=== PATIENT | male | born 1955 | race Caucasian/White ===

== ENCOUNTER → 2020-05-25 10:47 | Outpatient (BNVA) | payer MEDICARE, OTHER, SELFPAY | PROVIDERS: Family Provider Family Medicine; Visit Provider Nurse Practitioner Family | DX: R31.9 Hematuria, unspecified (principal); R31.29 Other microscopic hematuria | CPT/HCPCS: 81003; 85025 ==

== ENCOUNTER 2020-06-12 12:26 | Outpatient (CLI) | payer MEDICARE, OTHER, SELFPAY ==
--- NOTE | 2020-06-12 12:56 | CT_ITS ---
WS: [id number] CT ABDOMEN PELVIS TECHNIQUE: Noncontrast CT of the abdomen and pelvis with coronal and sagittal reformatted images. CLINICAL INFORMATION: HEMATURIA, NEPHROLITHIASIS DLP: 1184.[address] scans at [facility] use at least one of these dose optimization techniques: automat ed exposure control; mA and/or kV adjustment per patient size (includes targeted exams where dose is matched to clinical indication); or iterative reconstruction. FINDINGS: Adrenal Glands are normal. Moderate left hydronephrosis with obstructing calculus in the left proxima l ureter measuring 5 mm. Distal left ureter is decompressed. Inflammatory stranding and edema about t he left kidney. No hydronephrosis in right kidney. Right ureter is decompressed. Noncontrast liver is normal. Choleli thiasis/sludge in the neck of the gallbladder. Lung bases are well aerated. Slight hazy groundglass i nfiltrates in the mid and lower lungs bilaterally.Correlation for pneumonitis. Diffuse bladder wall thickening. Enlarged prostate with calcification. Prostate measures 4.3 CM. Norm al sigmoid colon. No evidence of high-grade small or large bowel obstruction. Normal appendix. Fat-co ntaining umbilical hernia. Normal noncontrast spleen and pancreas. Normal lumbar spine. CT/CT kidney stone [id number] IMPRESSION: 1. 5 mm obstructing left proximal ureteral calculus with moderate left hydrone phrosis. Inflammatory stranding and edema about the left kidney. Distal left ur eter is decompressed. 2. Cholelithiasis with sludge or stones in the gallbladder neck. This can be f ollowed up with ultrasound. 3. Mild prostate enlargement measuring 4.3 CM. Recommend correlation PSA. 4. Diffuse bladder wall thickening likely due to bladder outlet obstruction. 5. Slight hazy vague groundglass infiltrates in the lung bases. Recommend mary elation for viral pneumonitis.
== END 2020-06-12 12:27 | disposition home or self-care (01) ==
LOC: RADWPI 12:30
PROVIDERS: Visit Provider Family Medicine
DX: R31.9 Hematuria, unspecified (principal); N20.0 Calculus of kidney; N40.1 Benign prostatic hyperplasia with lower urinary tract symptoms; N20.1 Calculus of ureter; K80.20 Calculus of gallbladder without cholecystitis without obstruction; R91.8 Other nonspecific abnormal finding of lung field
CPT/HCPCS: 74176

== ENCOUNTER 2020-06-16 14:17 | Outpatient (CLI) | payer MEDICARE, OTHER, SELFPAY ==
--- NOTE | 2020-06-16 14:36 | XR_ITS ---
WS: [id number] ABDOMEN 1 VIEW(S) HISTORY: CALCULUS COMPARISON: None available. Normal bowel gas pattern. No suspicious calcifications or masses. No bone abnormality. XR/XR KUB [id number] IMPRESSION: Normal abdomen.
== END 2020-06-16 14:18 | disposition home or self-care (01) ==
PROVIDERS: PCP Family Medicine; Visit Provider Urology
DX: N20.1 Calculus of ureter (principal)
CPT/HCPCS: 74018; 81003

== ENCOUNTER 2020-06-26 08:02 | Outpatient (CLI) | payer MEDICARE, OTHER, SELFPAY ==
--- NOTE | 2020-06-26 09:15 | XRR_ITS ---
PROCEDURE INFORMATION: Exam: XR Abdomen, 1 View Exam date and time: 06/26/2020 8:12 AM Age: 64 years old Clinical indication: Condition or disease; Kidney or ureter condition; Calculus (stone) in kidney and calculus (stone) in ureter; Patient HX: Kidney stone left side, checking to see if has moved, microscopic hematura; Additional info: Stones TECHNIQUE: Imaging protocol: XR of the abdomen. Views: Frontal supine view of the abdomen. 1 View. COMPARISON: CR XR KUB [id number] 06/16/2020 2:42 PM FINDINGS: Gastrointestinal tract: Normal. No bowel dilation. Bones/joints: Previously seen radiopaque calculus along the left lateral aspect of L4 is no longer visualized. Bilateral pelvic phleboliths are re-identified. XR/XR KUB [id number] IMPRESSION: Previously identified left ureteral calculus is no longer seen.
== END 2020-06-26 08:03 | disposition home or self-care (01) ==
LOC: RAD 08:07
PROVIDERS: PCP Family Medicine; Visit Provider Urology
DX: N20.9 Urinary calculus, unspecified (principal)
CPT/HCPCS: 74018; 81003

== ENCOUNTER 2020-07-03 06:55 | Outpatient (CLI) | payer MEDICARE, OTHER, SELFPAY ==
--- NOTE | 2020-07-03 07:00 | XR_ITS ---
WS: [id number] Exam: XR KUB [id number] Date/Time of Exam: 07/03/2020 7:05 AM Reason For Exam: STONES No bowel obstruction or free air. No abnormal calcifications identified in the region of the kidneys. Nonspecific bilateral pelvic calcifications noted. Visualized organ margins are unremarkable in appe arance. Bony structures are intact. XR/XR KUB [id number] IMPRESSION: 1. No acute abdominal finding. 2. No calcifications noted in the region of the kidneys.
== END 2020-07-03 06:56 | disposition home or self-care (01) ==
LOC: RAD 06:58
PROVIDERS: PCP Family Medicine; Visit Provider Urology
DX: N20.9 Urinary calculus, unspecified (principal)
CPT/HCPCS: 74018; 81003

== ENCOUNTER 2020-07-10 08:00 | Outpatient (CLI) | payer MEDICARE, OTHER, SELFPAY ==
--- NOTE | 2020-07-10 08:06 | XR_ITS ---
WS: [id number] KUB, AP view, 07/09/2020 Clinical Data: STONES Comparison: KUB, 07/03/2020. Findings: No abnormal intraabdominal masses or calcifications are seen. There is no dilatated small bowel or ev idence of obstruction. There are phleboliths in the true pelvis. XR/XR KUB [id number] Impression: Negative KUB.
== END 2020-07-10 08:01 | disposition home or self-care (01) ==
PROVIDERS: PCP Family Medicine; Visit Provider Urology
DX: N20.9 Urinary calculus, unspecified (principal)
CPT/HCPCS: 74018; 81003

== ENCOUNTER 2020-07-13 06:41 | Outpatient (CLI) | payer MEDICARE, OTHER, SELFPAY ==
--- NOTE | 2020-07-13 07:00 | CT_ITS ---
WS: [id number] CT ABDOMEN PELVIS TECHNIQUE: Noncontrast CT of the abdomen and pelvis with coronal and sagittal reformatted images. CLINICAL INFORMATION: UROLITHIASIS COMPARISON: 2 09/25 DLP: 1965.[address] scans at [facility] use at least one of these dose optimization techniques: automat ed exposure control; mA and/or kV adjustment per patient size (includes targeted exams where dose is matched to clinical indication); or iterative reconstruction. FINDINGS: Previous described 5 mm proximal left ureteral calculus has migrated distally now at the pelvic inlet and the left lower quadrant. Distal ureter is decompressed. Mild inflammatory stranding and edema ab out the left kidney has improved. Mild hydronephrosis appears improved. No hydronephrosis in right kidney. Nonobstructing right renal or ureteral calculi. No other significa nt changes from previous. Left renal cyst measuring 1.6 cm. Normal noncontrast liver. Cholelithiasis.Diffuse bladder wall thickening. Enlarged prostate with calc ification. Prostate measures 4.3 CM. Normal sigmoid colon. No evidence of high-grade small or large b owel obstruction. Normal appendix. Fat-containing umbilical hernia. Normal noncontrast spleen and jeffrey creas. Normal lumbar spine. CT/CT kidney stone [id number] IMPRESSION: 1. Previous described 5 mm left obstructing ureteral calculus has migrated dis tally now at the pelvic inlet. Hydronephrosis and inflammatory stranding about the left kidney has improved. 2. No other significant changes from previous. 3. Cholelithiasis. 4. Enlarged calcified prostate.
== END 2020-07-13 06:42 | disposition home or self-care (01) ==
PROVIDERS: PCP Family Medicine; Visit Provider Nurse Practitioner Family
DX: N20.9 Urinary calculus, unspecified (principal); N40.0 Benign prostatic hyperplasia without lower urinary tract symptoms; K80.20 Calculus of gallbladder without cholecystitis without obstruction
CPT/HCPCS: 74176; 81003

== ENCOUNTER 2020-07-24 09:57 | Outpatient (CLI) | payer MEDICARE, OTHER, SELFPAY ==
--- NOTE | 2020-07-24 10:15 | XR_ITS ---
WS: [id number] XR KUB [id number] REASON FOR EXAM: stones FINDINGS: Examination is unchanged compared to previous study of 07/10/2020. No urinary tract calculi are identif ied. The bowel gas pattern is unremarkable. No free air or retroperitoneal air. No mass is identified. XR/XR KUB [id number] IMPRESSION: No significant abnormality.
== END 2020-07-24 09:58 | disposition home or self-care (01) ==
LOC: RAD 10:04
PROVIDERS: PCP Family Medicine; Visit Provider Urology
DX: N20.9 Urinary calculus, unspecified (principal)
CPT/HCPCS: 74018; 81003

== ENCOUNTER → 2020-08-03 15:55 | Outpatient (BNVA) | payer MEDICARE, OTHER, SELFPAY | PROVIDERS: PCP Family Medicine; Visit Provider Urology | DX: Z20.822 Contact with and (suspected) exposure to COVID-19 (principal); N20.1 Calculus of ureter; N20.9 Urinary calculus, unspecified | CPT/HCPCS: 87635 ==

== ENCOUNTER 2020-08-06 11:25 | Day surgery (SDC) | payer MEDICARE, OTHER, SELFPAY ==
[2020-08-05 12:47] VITALS: BMI 32.5
--- NOTE | 2020-08-06 | SCC_ITS ---
Procedure Done: 1. Cystoscopy with left retrograde ureteropyelogram 2. Left ureteroscopy, laser lithotripsy, stent 33.7 seconds of fluoroscopic guidance, for a cumulative dose of 12.29 mGy, was provided to Dr. Cross by the radiology department. C-arm images of the abdomen were saved for the patient's permanent record. [facility]
--- NOTE | 2020-08-06 11:21 | SC_ITS ---
WS: [id number] C-arm fluoroscopy for left ureteral stent placement, 08/06/2020 Clinical Data: Left ureteral stone Comparison: KUB, 08/06/2020 Findings: A left retrograde urogram shows a filling defect at the level of the left pelvic brim which is probab ly a ureteral calculus. The left ureteral stent is placed into the left renal pelvis and into the bladder. SC/C-arm FL for Urology Impression: Satisfactory placement of left ureteral stent.
--- NOTE | 2020-08-06 11:21 | XR_ITS ---
WS: [id number] KUB, 08/06/2020 Clinical Data: Preop left ureteroscopy Comparison: KUB, 07/24/2020. Findings: No abnormal intraabdominal masses or calcifications are seen. There is no dilatated small bowel or ev idence of obstruction. XR/XR KUB [id number] Impression: Negative KUB.
[2020-08-06 12:07] VITALS: BP 174/95; PULSE 65; RESP 18; TEMP 36.3; O2SAT 98
[2020-08-06] MEDS: sodium chloride 0.9% 1,000 ML 30 ML IV (12:28)
--- NOTE | 2020-08-06 12:57 | P.HPUD_ITS ---
Surgery/Procedure H&P Update DATE OF PROCEDURE: August 06, 2020 DATE H&P PERFORMED: 07/24/20 H&P UPDATE INFORMATION: I have reviewed H&P completed within last 30 days, I have examined patient prior to procedure, No changes to prior documentation and H&P is in [facility] EMR on date indicated PREOP DIAGNOSIS: Refractory left ureteral calculus PLANNED PROCEDURE: Operation Date: 08/06/20 13:00 Proposed Procedures p Laser Lithotripsy [id number] 40729 N20.1 N20.9(Not Applicable) - Deny Cross MD s Cystoscopy(Not Applicable) - MD haley Chavez Retrograde Pyelogram(Left) - MD haley Chavez Ureteroscopy(Not Applicable) - Deny Cross MD s Ureteral Stent Placement(Not Applicable) - Deny Cross MD
--- NOTE | 2020-08-06 14:15 | P.OP_ITS ---
Operative Report Date of procedure: August 06, 2020 Pre-op Diagnosis: Refractory left ureteral calculus Post-op diagnosis: same Procedure Done: 1. Cystoscopy with left retrograde ureteropyelogram 2. Left ureteroscopy, laser lithotripsy, stent Implants: Left ureteral stent (6 [place] by 28 cm double-pigtail without string Pathology: Stone fragments Anesthesia: General Estimated blood loss: Minimal Urine output: Not measured Complications: None Brief History: Mr. Brice is a very pleasant 64-year-old white male evaluated on 06/16/2020 with complaints of recently diagnosed 5 mm left proximal ureteral stone with obstructive changes. By the time I saw him he was feeling much better and wanted to see if he could pass the stone. The stone was hard to identify on the original KUB following the CT scan and since that time it has not been clearly seen but a follow-up repeat CT scan showed the stone was still present in the ureter but now at the level of S1 with no hydronephrosis. He chose to continue conservative management but had no passage. He is admitted now for endoscopic treatment of the stone Procedure: After routine preoperative evaluation examination and obtaining of informed consent he was taken to the operating suite on 08/06/2020 where general anesthesia was administered without difficulty after appropriate timeout was performed, SCDs confirmed to be functioning, preoperative antibiotics administered, beta- irene protocol confirmed. Prepped and draped in usual sterile fashion in dorsolithotomy position paying careful attention to avoiding pressure points. 21 [place] cystoscope with 30 degree lens was introduced into the urethral meatus and advanced into the bladder under videoscopy. Bladder systematically examined and found to be within normal limits without stone. An 8 [place] cone-tip catheter was intubated to the left ureteral orifice for a LEFT RETROGRADE URETEROPYELOGRAM: The distal ureter appeared to be normal. Filling defect identified in the expected position in the sacral level ureter. Flexible tip guidewire was then advanced up the left ureter bypassing the stone and curling the area of the upper pole calyx. The distal ureter was dilated with a 15 [place] 4 cm balloon. The wire was secured to the drapes as a safety wire. A second guidewire was passed. It also easily bypassed the stone. A 38 cm ureteral access sheath was advanced over the working wire to just below the level of the stone and the wire and the inner core were removed. A 7 [place] offset semirigid ureteroscope was then advanced up the access sheath and the stone was encountered in its expected position. A 365 ?m thulium superpulse laser fiber was utilized for fragmentation. After complete fragmentation the pieces were withdrawn with a grasping forceps and flushed free from the ureter. final inspection revealed no further stone pieces. It was decided to leave a ureteral stent in place and a 6 [place] by 28 cm double-pigtail stent was advanced over the guidewire through the cystoscope into appropriate position as confirmed via fluoroscopy and cystoscopy. Bladder was drained. Stone fragments sent for pathologic evaluation. Tolerated procedure well without complications and was awakened in the operating room and returned to recovery in stable condition. PLANS: 1. Anticipate discharge from outpatient surgery 2. Follow-up in approximately 1 week for stent removal 3. He has a large prostate and may require catheter if difficulty voiding postop.
--- NOTE | 2020-08-06 14:47 | PC.NURSE ---
omnipaque 300mgi/ml 2ml injected into left ureter exp 03/30/23 lot#[id number]
[2020-08-06] MEDS: iohexol 300 mg/mL 50 mL Btl XX (14:48)
[2020-08-06 15:10] VITALS: BP 148/83; PULSE 78; RESP 18; TEMP 36.4; O2SAT 99
[2020-08-06 15:15] VITALS: BP 136/80; PULSE 77; RESP 18; O2SAT 95
[2020-08-06 15:20] VITALS: BP 144/91; PULSE 78; RESP 18; O2SAT 96
[2020-08-06 15:25] VITALS: BP 145/81; PULSE 76; RESP 17; TEMP 36.3; O2SAT 97
[2020-08-06 15:32] VITALS: BP 163/95; PULSE 72; RESP 16; TEMP 36.6; O2SAT 96
== END 2020-08-06 16:12 | disposition home or self-care (01) ==
PROVIDERS: PCP Family Medicine; Visit Provider Urology
PROC: (CPT 52356; principal; 2020-08-06 12:50)
PROC: 0TJB8ZZ Inspection of Bladder, Via Natural or Artificial Opening Endoscopic (ICD-10-PCS; CPT 52000; 2020-08-06 12:50)
PROC: (CPT 74420; 2020-08-06 12:50)
PROC: 0TJ98ZZ Inspection of Ureter, Via Natural or Artificial Opening Endoscopic (ICD-10-PCS; CPT 52351; 2020-08-06 12:50)
PROC: (CPT 50605; 2020-08-06 12:50)
DX: N20.1 Calculus of ureter (principal); N40.1 Benign prostatic hyperplasia with lower urinary tract symptoms; N13.8 Other obstructive and reflux uropathy
CPT/HCPCS: 52356; 74018; 76000; 82365; 88300; C2625; J0690; J2370; J2405; J2704; J2710; J3010; J3490; J7030; Q9967

== ENCOUNTER → 2020-08-12 08:12 | Outpatient (BNVA) | payer MEDICARE, OTHER, SELFPAY | PROVIDERS: PCP Family Medicine; Visit Provider Urology | DX: N20.9 Urinary calculus, unspecified (principal) | CPT/HCPCS: 81003 ==

== ENCOUNTER 2021-02-11 08:17 | Outpatient (CLI) | payer MEDICARE, OTHER, SELFPAY ==
--- NOTE | 2021-02-11 08:30 | XR_ITS ---
WS: [id number] XR KUB [id number] REASON FOR EXAM: UROLITHIASIS FINDINGS: No urinary tract calculi are identified. No other significant abdominal or pelvic abnormality is identified. XR/XR KUB [id number] IMPRESSION: No urinary tract calculi identified.
== END 2021-02-11 08:18 | disposition home or self-care (01) ==
PROVIDERS: PCP Family Medicine; Visit Provider Urology
DX: N20.9 Urinary calculus, unspecified (principal)
CPT/HCPCS: 74018; 81003

== ENCOUNTER → 2021-05-17 13:38 | Outpatient (BNVA) | payer MEDICARE, OTHER, SELFPAY | PROVIDERS: PCP Family Medicine; Visit Provider Nurse Practitioner Family | DX: Z20.822 Contact with and (suspected) exposure to COVID-19 (principal) | CPT/HCPCS: 87635 ==

== ENCOUNTER 2022-02-25 17:21 | Inpatient (IN) | payer MEDICARE, OTHER, SELFPAY ==
--- NOTE | 2022-02-25 17:25 | ECG_ITS ---
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 Measurements Intervals [place] Rate: 59 P: 63 RI: 283 QRS: 13 QRSD: 100 T: 64 QT: 435 QTc: 432 Interpretive Statements SINUS BRADYCARDIA WITH FIRST DEGREE AV BLOCK MODERATE ST DEPRESSION [0.05+ mV ST DEPRESSION] Compared to ECG 10/04/2015 19:26:02 ST (T wave) deviation now present Sinus rhythm no longer present Electronically Signed On 02-28-2022 23:06:17 CDT by Tessy Snow M.D. [id number]
--- NOTE | 2022-02-25 17:25 | XRR_ITS ---
PROCEDURE INFORMATION: Exam: XR Chest Exam date and time: 02/25/2022 6:35 PM Age: 66 years old Clinical indication: Other: Syncope; Additional info: Cp TECHNIQUE: Imaging protocol: Radiologic exam of the chest. Views: 1 view. COMPARISON: CR XR KUB [id number] 02/11/2021 8:27 AM FINDINGS: Lungs: Unremarkable. No consolidation. Pleural spaces: Unremarkable. No pleural effusion. No pneumothorax. Heart/Mediastinum: Unremarkable. No cardiomegaly. Bones/joints: Unremarkable. XR/XR chest 1V portable [id number] IMPRESSION: No acute findings.
[2022-02-25 17:31] VITALS: BP 142/85; PULSE 63; RESP 15; TEMP 36.7; O2SAT 97; BMI 32.5
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
[2022-02-25 18:26] LABS: Basophils # 0.1 10^3/uL (0.0-0.1); Basophils % 0.4 %; Eosinophils % 0.3 %; Hematocrit 43.1 % (42.0-52.0); Hemoglobin 14.6 g/dL (11.7-16.6); Lymphocytes # 1.5 10^3/uL (0.8-4.8); Lymphocytes % 11.1 %; Mean Corpuscular HGB Conc 33.9 g/dL (30.0-36.0); Mean Corpuscular Hemoglobin 30.5 pg (28.0-34.0); Mean Platelet Volume 9.8 fL (7.4-10.4); Monocytes # 0.3 10^3/uL (0.2-0.9); Monocytes % 2.3 %; Neutrophils # 11.67 10^3/uL (1.8-7.7); Neutrophils % 85.3 %; Nucleated Red Blood Cells % 0 %; Platelet Count 272 10^3/cmm (130-400); Red Blood Count 4.79 10^6/uL (4.1-5.3); Red Cell Distribution Width 13.1 % (12.1-15.1); White Blood Count 13.7 10^3/uL (4.0-10.0)
[2022-02-25 18:53] LABS: Troponin(5th) Baseline 38 ng/L (0-15)
[2022-02-25] MEDS: lidocaine 2% viscous 15 ML, aluminum-mag hydrox-simethicon 30 ML, sucralfate oral liq 1 GM PO (18:53)
[2022-02-25] MEDS: aspirin 81 mg Chew Tablet 324 MG PO (18:53)
[2022-02-25 19:01] VITALS: BP 142/85; PULSE 63; RESP 15; O2SAT 97
[2022-02-25 19:02] LABS: Alanine Aminotransferase 22 U/L (0-41); Albumin Level 4.3 g/dL (3.5-5.2); Alkaline Phosphatase 60 U/L (40-130); Aspartate Amino Transferase 18 U/L (0-40); Blood Urea Nitrogen 23 mg/dL (8-23); Calcium 8.8 mg/dL (8.5-10.5); Carbon Dioxide 25 mmol/L (22-29); Chloride 103 mmol/L (98-107); Creatinine Clr Calc Pharmacy 100.1164; Glomerular Filtration Rate 83.9 mL/min (90-130); Glucose 128 mg/dL (65-115); Lipase 23 U/L (13-60); NT Pro B Type Natriuretic Pept 220 pg/mL (0-125); Osmolality Calculated 291 mOsm/kg (285-295); Sodium 138 mmol/L (136-145); Total Bilirubin 0.3 mg/dL (0.15-1.2); Total Protein 7.3 g/dL (6.6-8.7)
--- NOTE | 2022-02-25 19:09 | ECG_ITS ---
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 Measurements Intervals [place] Rate: 66 P: 53 CA: 285 QRS: 20 QRSD: 101 T: 63 QT: 409 QTc: 429 Interpretive Statements SINUS RHYTHM WITH FIRST DEGREE AV BLOCK MODERATE ST DEPRESSION [0.05+ mV ST DEPRESSION] Compared to ECG 02/25/2022 17:40:36 Sinus bradycardia no longer present ST (T wave) deviation still present Electronically Signed On 02-28-2022 23:17:31 CDT by Tessy Snow M.D. [id number]
[2022-02-25 20:54] LABS: Troponin 5 2HR 48.75 ng/L (0-15)
[2022-02-25 21:01] LABS: Troponin 5 2HR Delta 10.75 ABS# (0-10)
[2022-02-25] MEDS: enoxaparin 120 mg/0.8 mL Syringe 110 MG SUBCUT (22:09)
[2022-02-25 22:12] VITALS: BP 130/81; PULSE 75; RESP 17; O2SAT 98
[2022-02-25 22:32] LABS: SARS Covid-2 Antigen negative (Negative)
[2022-02-25 22:56] VITALS: BP 123/84; PULSE 69; PULSE 71; RESP 19; O2SAT 95
[2022-02-25 23:00] VITALS: BP 130/81; PULSE 75; RESP 17; O2SAT 98
--- NOTE | 2022-02-25 23:25 | ECG_ITS ---
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 Measurements Intervals [place] Rate: 80 P: 48 NC: 263 QRS: 3 QRSD: 95 T: 39 QT: 391 QTc: 453 Interpretive Statements SINUS RHYTHM WITH FIRST DEGREE AV BLOCK NONSPECIFIC ST & T-WAVE ABNORMALITY Compared to ECG 02/25/2022 19:09:49 T-wave abnormality now present ST (T wave) deviation no longer present Electronically Signed On 02-28-2022 23:17:01 CDT by Tessy Snow M.D. [id number]
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
[2022-02-25 23:58] VITALS: BP 123/84; PULSE 74; RESP 13; TEMP 37.1; O2SAT 93
[2022-02-26] VITALS (30 sets, daily range): BP systolic 99–155; BP diastolic 56–91; PULSE 60–88; RESP 11–22; TEMP 36.6–37.1; O2SAT 92–96
[2022-02-26] MEDS: HYDROcodone-acetaminophen 5-325 mg Tablet 1 TAB PO ×2 (00:09→20:17)
[2022-02-26] MEDS: zolpidem 5 mg Tablet 10 MG PO ×2 (00:09→20:18)
[2022-02-26] MEDS: morphine 4 mg/mL SDV 1 mL 2 MG IVP ×2 (01:17→05:17)
[2022-02-26 01:37] LABS: Basophils % 0.3 %; Eosinophils % 0.1 %; Hematocrit 45.3 % (42.0-52.0); Hemoglobin 15.1 g/dL (11.7-16.6); Lymphocytes # 1.7 10^3/uL (0.8-4.8); Lymphocytes % 12.2 %; Mean Corpuscular HGB Conc 33.3 g/dL (30.0-36.0); Mean Corpuscular Hemoglobin 29.8 pg (28.0-34.0); Mean Corpuscular Volume 89.5 fl (80-94); Mean Platelet Volume 9.6 fL (7.4-10.4); Monocytes # 0.5 10^3/uL (0.2-0.9); Monocytes % 3.6 %; Neutrophils # 11.75 10^3/uL (1.8-7.7); Neutrophils % 83.4 %; Nucleated Red Blood Cells % 0 %; Platelet Count 269 10^3/cmm (130-400); Red Blood Count 5.06 10^6/uL (4.1-5.3); Red Cell Distribution Width 13.4 % (12.1-15.1); White Blood Count 14.1 10^3/uL (4.0-10.0)
[2022-02-26 02:04] LABS: Alanine Aminotransferase 24 U/L (0-41); Albumin Level 4.3 g/dL (3.5-5.2); Alkaline Phosphatase 57 U/L (40-130); Anion Gap 17.9 (5-19); Aspartate Amino Transferase 32 U/L (0-40); Blood Urea Nitrogen 19 mg/dL (8-23); Calcium 8.8 mg/dL (8.5-10.5); Carbon Dioxide 22 mmol/L (22-29); Chloride 100 mmol/L (98-107); Globulin 2.7 g/dL (1.3-4.6); Glomerular Filtration Rate 96.1 mL/min (90-130); Glucose 133 mg/dL (65-115); Magnesium 2.1 mg/dL (1.7-2.3); Osmolality Calculated 286 mOsm/kg (285-295); Potassium 3.9 mmol/L (3.5-5.1); Sodium 136 mmol/L (136-145); Total Bilirubin 0.4 mg/dL (0.15-1.2)
--- NOTE | 2022-02-26 04:47 | PC.NURSE ---
Spoke with regarding patients 6hr troponin elevation. ordered 1/2 inch Nitro paste.
[2022-02-26] MEDS: nitroglycerin 1 gm/inch oint Pkt 0.5 INCH TOPICAL (05:01)
--- NOTE | 2022-02-26 05:11 | USCV_ITS ---
Cuco Brice Age: 66 Gender: M : 1955 Exam Date: 02/26/2022 07:23 Ordering Phys: Bita Zaman MD Technologist: Exam Location: [facility] [place] Indication: nstemi BP: 137 / 87 HR: 79 Rhythm: Sinus Technical Quality: Suboptimal MEASUREMENTS (Male / Female) Normal Values 2D ECHO LV Diastolic Diameter PLAX 4.1 cm 4.2 - 5.9 / 3.9 - 5.3 cm LV Systolic Diameter PLAX 3.1 cm IVS Diastolic Thickness 1.2 cm 0.6 - 1.0 / 0.6 - 0.9 cm IVS Systolic Thickness 1.4 cm LVPW Diastolic Thickness 1.0 cm 0.6 - 1.0 / 0.6 - 0.9 cm LVPW Systolic Thickness 1.5 cm LVOT Diameter 2.1 cm LV Ejection Fraction 2D Teich 49.1 % LV Ejection Fraction MOD 2C 62.6 % LV Ejection Fraction 2C AL 63.9 % LA Diameter 4.1 cm M-MODE Aortic Annulus Diameter 3.1 cm LA Ao Ratio MM 1.4 MV E Point Septal Separation 1.2 cm DOPPLER AV Peak Velocity 141.0 cm/s LVOT Peak Velocity 83.0 cm/s AV Area Cont Eq vti 2.5 cm squared AV Area Cont Eq pk 2.0 cm squared MV Area PHT 5.0 cm squared Mitral E to A Ratio 0.7 MV E' Velocity 38.0 cm/s Mitral E to MV E' Ratio 7.5 Mitral E to LV E' Lateral Ratio 9.4 Mitral E to LV E' Septal Ratio 6.3 TR Peak Velocity 145.0 cm/s TR Peak Gradient 8.4 mmHg TV Peak E Velocity 119.0 cm/s Right Atrial Pressure 3.0 mmHg Pulmonary Artery Systolic Pressu 11.4 mmHg RV Acceleration Time 0.1 s FINDINGS Left Ventricle Normal left ventricular size, systolic function and wall thickness. Left ventricular ejection fraction is estimated at 55 %. There is moderate hypokinesis of basal inferoseptal and basal to mid inferior maddox. Grade I diastolic dysfunction (abnormal relaxation filling pattern), normal to mildly elevated filling pressures. Right Ventricle Normal right ventricular size and systolic function. RVSP could not be calculated due to incomplete tricuspid regurgitation velocity profile. Right Atrium Normal right atrial size. Left Atrium Normal left atrial size. Mitral Valve Moderately thickened mitral valve. No mitral valve stenosis. No mitral valve regurgitation. Aortic Valve Mildly thickened trileaflet aortic valve. No aortic valve stenosis. No aortic valve regurgitation. Tricuspid Valve Structurally normal tricuspid valve. Trace tricuspid valve regurgitation. Pulmonic Valve Pulmonic valve not well visualized. No pulmonary valve stenosis. Trace pulmonary valve regurgitation. Pericardium No pericardial effusion. Aorta Normal size aortic root and proximal ascending aorta. IVC Inferior vena cava not visualized. CONCLUSIONS 1. This is a technically difficult study. 2. Normal left ventricular size, systolic function and wall thickness. Left ventricular ejection fraction is estimated at 55 %. There is moderate hypokinesis of basal inferoseptal and basal to mid inferior maddox. Grade I diastolic dysfunction (abnormal relaxation filling pattern), normal to mildly elevated filling pressures. 3. Normal right ventricular size and systolic function. 4. No significant valvular abnormality. 5. No prior similar studies to compare. Tessy Snow MD (Electronically Signed) Final Date: 26 February 2022 10:23 S
[2022-02-26] MEDS: clopidogrel 300 mg Tablet PO (05:32)
--- NOTE | 2022-02-26 05:52 | ECG_ITS ---
[facility] Test Date: 2022-02-26 Pat Name: Cuco Brice Department: Room: 276 Gender: Male Religion Professor: : 1955 Requested By: Bita Zaman Order Number: [id number] Lilibeth MD: Tessy Snow M.D. Measurements Intervals [place] Rate: 85 P: 45 OK: 236 QRS: -1 QRSD: 103 T: 65 QT: 376 QTc: 448 Interpretive Statements SINUS RHYTHM WITH FIRST DEGREE AV BLOCK NONSPECIFIC ST & T-WAVE ABNORMALITY Compared to ECG 02/26/2022 02:00:29 No significant changes Electronically Signed On 02-28-2022 23:05:05 CDT by Tessy Snow M.D. [id number]
--- NOTE | 2022-02-26 06:00 | PC.NURSE ---
rounded on patient. New orders obtained and patient started on Nitro drip for chest pain.
[2022-02-26] MEDS: nitroglycerin drip 50 MG/250 ML PREMIX IV (06:04)
[2022-02-26] MEDS: atorvastatin 40 mg Tablet PO (06:21)
[2022-02-26 06:24] LABS: Estmated Average Glucose 108; Hemoglobin A1C 5.4 % (4.0-6.0)
[2022-02-26 06:26] LABS: Chol HDL Ratio 6.61 mg/dL (1.0-5.00); Cholesterol 218 mg/dL (0-200); HDL Cholesterol 33 mg/dL (60-100); LDL Cholesterol Calculated 157 mg/dL (50-129); LDL HDL Ratio 4.76 RATIO (0.00-3.22); Triglycerides 139 mg/dL (0-150)
[2022-02-26] MEDS: acetaminophen 325 mg Tablet 650 MG PO (07:53)
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
[2022-02-26] MEDS: pantoprazole DR 40 mg Tablet PO (08:16)
[2022-02-26] MEDS: aspirin 81 mg EC Tablet PO (08:16)
[2022-02-26] MEDS: metoprolol succinate ER (24 HR) 50 mg Tablet 75 MG PO ×2 (08:16→17:57)
[2022-02-26] MEDS: dilTIAZem ER (24HR) 180 mg Capsule PO (08:16)
[2022-02-26] MEDS: losartan 50 mg Tablet 25 MG PO (08:18)
[2022-02-26] MEDS: alfuzosin 10 mg ER Tablet PO (08:25)
--- NOTE | 2022-02-26 09:10 | XACV_ITS ---
Exam Room: [facility] Ht: 183 cm Wt: 112 kg BSA: 2.43 m2 Gender: Male : 1955 Exam Priority: Routine Procedure(s): Procedure Description: Diagnostic procedure Procedure Description: PCI procedure Procedure Description: Drug Eluting Coronary Stent Procedure Description: PTCA Procedure Description: Coronary Angiography Diagnostic Cath Status: Urgent Diagnostic Findings * 66-year-old man with past medical history of hypertension and family history of CAD. He presented to the hospital with complaints of chest discomfort and his troponin T increased from 38 to 161. EKG showed sinus rhythm with ST depression in aVL V4 to V6. * Left Main has no disease. * Left Anterior Descending has no disease. * Circumflex is of small caliber with no disease. * Mid RCA with mild diffuse disease. * D * istal Right Coronary Artery: obstructive 95% stenosis with thrombus and distal aneurysm formation, ESTER: 3 flow. * Coronary angiography shows right dominance. * Case was discussed and images were reviewed with Dr. Todd. He took over the case at this time. PCI Status: Urgent PCI LVEF Assessed: No PCI Indication: NSTE - ACS Interventional Findings * Significant distal right coronary artery lesion with thrombus and aneurysmal formation. Initially underwent balloon angioplasty and subsequent stenting. Stenting revealed a very good result however there was some distal embolization of material down the most inferior posterior left ventricular branch. This was treated with intracoronary nitroglycerin which worked nicely. By the end of the procedure there was normal flow in all vessels. Decision for PCI with Surgical Consult: No PCI for Multi-vessel Disease: No Conclusions 1. There is obstructive coronary artery disease with one vessel disease. 2. Distal RCA severe lesion underwent balloon angioplasty and drug-eluting stent placement. Recommendations * Statin and aspirin 81mg lifelong, if tolerated. * Continue Plavix 75mg p.o. daily for at least one year. * Continue current medical management and risk factor modification. Pressures Phase:Rest AO : 109 / 80 ( 94 ) @ 10:50:00 AM 108 / 75 ( 91 ) @ 10:57:00 AM 132 / 76 ( 99 ) @ 11:01:00 AM 136 / 59 ( 94 ) @ 11:01:00 AM 125 / 81 ( 102 ) @ 11:10:00 AM 128 / 83 ( 104 ) @ 11:17:00 AM LV : 146 / 2 / 21 @ 11:01:00 AM 145 / 0 / 22 @ 11:01:00 AM Hemodynamic Findings LVEDP is 21 mmHg. Valves Phase:DefaultPhase AV : 12.0 @ 10:35:30 AM AV Mean Gradient: 12.0 @ 10:35:30 AM Clinical Evaluation EBL: 5mL-10mL Procedural Details Procedure Consent Obtained. Admit Source: In Patient. Pre-Procedure Time Out. Identified patient by full name and date of as verbalized by the patient/guarantor. Does the consent match the physician's order: Yes. Accurate & Complete Informed Consent: Yes. Inpatient/Outpatient History & Physical on Chart: Yes. If H&P is completed, is and addenduem needed: N/A; If yes, is the addendum complete: N/A. Visualize and Verify Site with Patient/Guarantor: N/A. Relevant Radiology Images available: N/A. Pre-op teaching completed and patient verbalized understanding. The risks, benefits, and alternatives of sedation and/or procedure were discussed by physician. The patient agrees to continue. Procedure started. [facility] Clinical Fraility Score: 2: Well. Packager Indications: New Onset Angina. Chest Pain Symptom Assessment: Typical Angina Symptoms. Correct patient, site and procedure confirmed by cath team. Current diagnosis: NSTEMI. PERRLA. Strong, equal hand clinical counselor bilaterally. Lungs clear x 5 lobes. IV Site on Arrival: 20 gauge in the left anticubital. IV Fluids: 0.9% NaCl at KVO. 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 Pre Procedural Pulses: right radial was 2+. Pre Procedural Pulses: bilateral dorsalis pedis was 3+. Oxygen started at 2liters/min via nasal canula. right groin was prepped with chloroprep then draped in the usual sterile fashion. right radial was prepped with chloroprep then draped in the usual sterile fashion. Baseline sample Acquired. HR: 56 BPM. Physician notified. Physician arrived. Physician scrubbed in. Immediate Pre-Procedure Time Out. Correct Patient: Yes; Correct Procedure: Yes; Correct Site: Yes; Correct Patient Position: Yes; Correct Supplies: Yes; Dried Flammable Prep: Yes; Blood Products Available: N/A;. Lidocaine 1% infiltrated to the right radial. Arterial access obtained. A 5 citizen [place] TIG catheter in over wire. Multiple views taken of left coronary artery. Catheter redirected to the RCA. Multiple views taken of right coronary artery. Dr Todd notified to come review films. Catheter advanced across the valve. EDP Sample taken: LV 146/2,21; HR: 70 BPM; SpO2: 96%. Pullback taken: LV 145/0,22; AO 132/76(99); Mean: 12mmHg, Peak to Peak: 12mmHg, SEP: 18sec/min; HR: 72 BPM; SpO2: 96%. Catheter removed over the standard wire. Dr Todd arrived to review cine films. Dr. Todd scrubbed in to perform intervention. Patient's family unavailable. 6 citizen [place] JR 4 guide catheter was inserted over the wire. [place] guidewire was advanced through the guide catheter to lesion in the distal RCA. Balloon inserted to lesion in the distal RCA. Inflation number : 1 A AB TREK 2.50X12 RX BALLOON was prepped and advanced across the Dist RCA , then inflated to 10 LEIGH for 0:28 seconds. Results checked. Balloon out. Stent inserted to lesion in the distal RCA. Inflation Number : 2 A SELINA Norman CHARISSE 3.0X18 JULIA -Lot Number# [id number] Exp 06/10/2024 was prepped and advanced across the Dist RCA. The stent was deployed at 12 LEIGH for 0:20 seconds. Stent balloon and wire out. Results checked. Guide catheter out. A TR Band was successful obtaining hemostatsis at the Right Radial artery insertion site. TR band placed. Hemostasis obtained. Post Procedure: Pulses reassessed and unchanged. PERRLA. Strong, equal hand clinical counselor bilaterally. No VTE prophylaxis required. Medication's Wasted: Lidocaine 1% = 2 mL. Medication's Wasted: Heparin = 1000 u. Medication's Wasted: Nitro = 49.6 mg. Medication's Wasted: Other = Versed 2 mg. Medication's Wasted: Other = Fentanyl 25mcg. Total IV fluids: 80 mL. PCI Indication: NSTE. Post-op diagnosis: Obstructive CAD. Complications: none. Estimated blood loss: 5mL-10mL. Responsiveness - Normal response to verbal stimuli; alert and oriented, PERRLA. Airway - Unaffected, no intervention required; spontaneous ventilation. Circulation: W/N/L, pulses unchanged. Nausea/Vomiting: No. Procedure completed. Patient transferred by bed to [facility]. Vital chart was stopped. Access Site Site: Right Radial artery Sheath Size: 6 Fr Hemostasis Method: TR Band Hemostasis Success: Successful Procedure Medications Start: 9:33 AM Stop: 9:33 AM Medication: Versed Amount: 1 mg Route: I.V. Start: 9:33 AM Stop: 9:33 AM Medication: Fentanyl Amount: 25 mcg Route: I.V. Start: 9:33 AM Stop: 9:33 AM Medication: Zofran (ondansetron) Amount: 4 mg Route: I.V. Start: 9:34 AM Stop: 9:34 AM Medication: Benadryl Amount: 50 mg Route: I.V. Start: 9:43 AM Stop: 9:43 AM Medication: Versed Amount: 1 mg Route: I.V. Start: 9:43 AM Stop: 9:43 AM Medication: Nitrogylcerin Amount: 200 mcg Route: I.A. Start: 9:49 AM Stop: 9:49 AM Medication: Heparin Amount: 5000 units Route: I.V. Start: 10:08 AM Stop: 10:08 AM Medication: Versed Amount: 1 mg Route: I.V. Start: 10:26 AM Stop: 10:26 AM Medication: Nitrogylcerin Amount: 200 mcg Route: I.A. Start: 10:26 AM Stop: 10:26 AM Medication: Fentanyl Amount: 25 mcg Route: I.V. Start: 10:30 AM Stop: 10:30 AM Medication: Plavix Amount: 300 mg Route: P.O. I, the attending physician, have reviewed and verified all procedure medications. Yes, all medications given per verbal order History/Risk Factors Hypertension: Yes Dyslipidemia: No Peripheral Arterial Disease (PAD): No Myocardial Infarction (VA): No Obesity: Yes Renal Disease: No Prior Interventions PCI: No CABG: No Valve Surgery: No Report Signatures Diagnostic Workflow Finalized by Tessy Snow MD on 02/28/2022 01:33 PM Interventional Workflow Finalized by Dr. Gregorio Todd MD on 02/26/2022 10:52 AM
--- NOTE | 2022-02-26 09:32 | W.PM.OPSUD ---
Surgery/Procedure H&P Update DATE OF PROCEDURE: February 26, 2022 DATE H&P PERFORMED: 02/26/22 H&P UPDATE INFORMATION: I have reviewed H&P completed within last 30 days, I have examined patient prior to procedure and No changes to prior documentation PREOP DIAGNOSIS: NSTEMI PRIMARY INDICATION FOR PROCEDURE: NSTEMI PLANNED PROCEDURE: Left heart cathetarization PATIENT REASSESSED PRIOR TO SEDATION, WITH NO CHANGE NOTED: Yes PHYSICAL EXAM: alert, oriented x 3, clear to auscultation bilaterally and regular rate & rhythm AIRWAY EVAL/ANESTHESIA PLAN: normal airway and ASA II
--- NOTE | 2022-02-26 10:04 | P.MISC_ITS ---
Miscellaneous Note Note: At the time of evaluation patient was complaining of dull pain He was on nitroglycerin drip Dr. 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
[2022-02-26] MEDS: sodium chloride 0.9% 1,000 ML 100 ML IV (11:28)
[2022-02-26] MEDS: enoxaparin 100 mg/mL Syringe SUBCUT (11:41)
--- NOTE | 2022-02-26 13:32 | PC.NURSE ---
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 No hematoma noted. Fluids running at 100ml/hr. No pain reported. Patient instructed not to lift or use r wrist for anything over 5lb.
[2022-02-27] VITALS: BP 111/71; PULSE 64; RESP 14; TEMP 37.2; O2SAT 91
[2022-02-27 04:00] VITALS: BP 102/57; PULSE 80; RESP 14; TEMP 37; O2SAT 92
[2022-02-27 05:02] LABS: Basophils # 0.1 10^3/uL (0.0-0.1); Basophils % 0.5 %; Eosinophils # 0.1 10^3/uL (0.0-0.8); Eosinophils % 1.1 %; Hematocrit 42.5 % (42.0-52.0); Hemoglobin 14.3 g/dL (11.7-16.6); Lymphocytes # 2.1 10^3/uL (0.8-4.8); Lymphocytes % 22.3 %; Mean Corpuscular HGB Conc 33.6 g/dL (30.0-36.0); Mean Corpuscular Hemoglobin 30.6 pg (28.0-34.0); Mean Platelet Volume 9.9 fL (7.4-10.4); Monocytes # 0.6 10^3/uL (0.2-0.9); Monocytes % 6.6 %; Neutrophils % 69.2 %; Nucleated Red Blood Cells % 0 %; Platelet Count 218 10^3/cmm (130-400); Red Blood Count 4.67 10^6/uL (4.1-5.3); Red Cell Distribution Width 13.4 % (12.1-15.1); White Blood Count 9.4 10^3/uL (4.0-10.0)
[2022-02-27 05:28] LABS: Blood Urea Nitrogen 23 mg/dL (8-23); Calcium 8.4 mg/dL (8.5-10.5); Carbon Dioxide 25 mmol/L (22-29); Chloride 104 mmol/L (98-107); Glomerular Filtration Rate 83.9 mL/min (90-130); Glucose 104 mg/dL (65-115); Osmolality Calculated 292 mOsm/kg (285-295); Sodium 139 mmol/L (136-145)
[2022-02-27 05:56] VITALS: PULSE 64
[2022-02-27 07:55] VITALS: BP 116/83; PULSE 88; RESP 14; TEMP 37; O2SAT 94
--- NOTE | 2022-02-27 07:55 | P.DS_ITS ---
Discharge Providers Date of Admission: 02/25/22 22:56 Date of Discharge: February 27, 2022 Attending Provider at Admission: Bita Zaman MD Attending Provider at Discharge: Liliana Blank MD Primary Care Provider: Juan Ramon Tabor DO Diagnoses at Discharge Discharge Diagnosis (1) Non-ST elevation SD (NSTEMI): Status: Acute (2) Essential (primary) hypertension: Status: Chronic (3) Dyslipidemia: Status: Acute (4) BPH (benign prostatic hyperplasia): Status: Acute Reason for Visit Reason for Visit: Chest Pain into arm Hospital Course Hospital Course 66-year-old male with family history of coronary disease, 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 Denton and then RCA stent was placed on 02/26, he will be kept on aspirin and Plavix along atorvastatin, patient is stating that his blood pressure is very labile is why he has clonidine as needed and higher doses of diltiazem, irbesartan, he does not want to discontinue those medications as this regime has worked in his favor. I will add aspirin, Plavix, atorvastatin on top of his irbesartan, diltiazem combination, he will follow-up with Dr. Snow in 1 month[address] did show [address] depression. D-dimer unremarkable. Echo showing grade 1 diastolic dysfunction with EF 55%. Physical Exam Narrative: Awake and alert S1, S2 Abdomen soft Nonfocal neuro exam Pleasant Currently on room air No active chest pain Discharge Data Studies Completed and Pending Completed Studies During Hospitalization Category Date Time Status XR chest 1V portable [id number] Stat Exams 02/25/22 17:25 Completed CV. 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 Laboratory Results WBC 9.4 10^3/uL (4.0-10.0) 02/27/22 04:49 RBC 4.67 10^6/uL (4.1-5.3) 02/27/22 04:49 Hgb 14.3 g/dL (11.7-16.6) 02/27/22 04:49 Hct 42.5 % (42.0-52.0) 02/27/22 04:49 MCV 91.0 fl (80-94) 02/27/22 04:49 MCH 30.6 pg (28.0-34.0) 02/27/22 04:49 MCHC 33.6 g/dL (30.0-36.0) 02/27/22 04:49 RDW 13.4 % (12.1-15.1) 02/27/22 04:49 Plt Count 218 10^3/cmm (130-400) 02/27/22 04:49 MPV 9.9 fL (7.4-10.4) 02/27/22 04:49 Neut % (Auto) 69.2 % 02/27/22 04:49 Lymph % (Auto) 22.3 % 02/27/22 04:49 [place] % (Auto) 6.6 % 02/27/22 04:49 Eos % (Auto) 1.1 % 02/27/22 04:49 Baso % (Auto) 0.5 % 02/27/22 04:49 Neut # (Auto) 6.50 10^3/uL (1.8-7.7) 02/27/22 04:49 Lymph # (Auto) 2.1 10^3/uL (0.8-4.8) 02/27/22 04:49 [place] # (Auto) 0.6 10^3/uL (0.2-0.9) 02/27/22 04:49 Eos # (Auto) 0.1 10^3/uL (0.0-0.8) 02/27/22 04:49 Baso # (Auto) 0.1 10^3/uL (0.0-0.1) 02/27/22 04:49 Nucleated RBC % (auto) 0 % 02/27/22 04:49 Nucleated RBCs # 0.0 /100WBC 02/27/22 04:49 Sodium 139 mmol/L (136-145) 02/27/22 04:49 Potassium 4.0 mmol/L (3.5-5.1) 02/27/22 04:49 Chloride 104 mmol/L (98-107) 02/27/22 04:49 Carbon Dioxide 25 mmol/L (22-29) 02/27/22 04:49 Anion Gap 14.0 (5-19) 02/27/22 04:49 BUN 23 mg/dL (8-23) 02/27/22 04:49 Creatinine 0.9 mg/dL (0.7-1.2) 02/27/22 04:49 GFR Calculation 83.9 mL/min (90-130) L 02/27/22 04:49 Glucose 104 mg/dL (65-115) 02/27/22 04:49 Estimat Average Glucose 108 02/26/22 01:20 Hemoglobin A1c 5.4 % (4.0-6.0) 02/26/22 01:20 Calculated Osmolality 292 mOsm/kg (285-295) 02/27/22 04:49 Calcium 8.4 mg/dL (8.5-10.5) L 02/27/22 04:49 Magnesium 2.1 mg/dL (1.7-2.3) 02/26/22 01:20 Total Bilirubin 0.4 mg/dL (0.15-1.2) 02/26/22 01:20 AST 32 U/L (0-40) 02/26/22 01:20 ALT 24 U/L (0-41) 02/26/22 01:20 Alkaline Phosphatase 57 U/L (40-130) 02/26/22 01:20 Troponin T Baseline 38 ng/L (0-15) H 02/25/22 18:18 Troponin T 120 Minute 48.75 ng/L (0-15) H 02/25/22 20:16 Delta Troponin T 10.75 ABS# (0-10) H* 02/25/22 20:16 Troponin T Hi Sens 6Hr 161.0 ng/L (0-15) H 02/26/22 01:20 Troponin T Hi Sens 6Hr Delta 123.0 ng/L (0-12) H* 02/26/22 01:20 NT-Pro-B Natriuret Pep 220 pg/mL (0-125) H 02/25/22 18:18 Total Protein 7.0 g/dL (6.6-8.7) 02/26/22 01:20 Albumin 4.3 g/dL (3.5-5.2) 02/26/22 01:20 Globulin 2.7 g/dL (1.3-4.6) 02/26/22 01:20 Triglycerides 139 mg/dL (0-150) 02/26/22 01:20 Cholesterol 218 mg/dL (0-200) H 02/26/22 01:20 LDL Cholesterol, Calc 157 mg/dL (50-129) H 02/26/22 01:20 HDL Cholesterol 33 mg/dL (60-100) L 02/26/22 01:20 LDL/HDL Ratio 4.76 RATIO (0.00-3.22) H 02/26/22 01:20 Cholesterol/HDL Ratio 6.61 mg/dL (1.0-5.00) H 02/26/22 01:20 Lipase 23 U/L (13-60) 02/25/22 18:18 SARS-CoV-2 Ag (Rapid) negative (Negative) 02/25/22 20:20 Vitals Last Vital Signs Temp 98.6 F 02/27/22 04:00 Pulse 64 02/27/22 05:56 Resp 14 02/27/22 04:00 BP 102/57 02/27/22 04:00 Pulse Ox 92 02/27/22 04:00 O2 Del Method 02/27/22 04:00 O2 Flow Rate 2 02/26/22 12:45 Discharge Plan Discharge Patient Disposition: Home Condition: Stable Prescriptions: New aspirin 81 mg Tablet,Delayed Release (Dr/Ec) 81 mg PO DAILY Qty: 60 3RF atorvastatin 40 mg Tablet 40 mg PO BEDTIME Qty: 60 3RF clopidogrel 75 mg Tablet 75 mg PO DAILY Qty: 60 3RF DILT-XR 180 mg Capsule,Ext.Rel 24h Degradable 180 mg PO BIDWM Qty: 60 0RF clonidine HCl 0.1 mg tablet 0.1 mg PO DAILY Qty: 30 0RF nitroglycerin 0.4 mg Tablet, Sublingual 0.4 mg sublingual Q5M PRN (Reason: Chest Pain) Qty: 25 3RF Continued zolpidem [Ambien] 10 mg tablet 10 mg PO DAILY PRN (Reason: sleep) Qty: 30 5RF alfuzosin 10 mg tablet extended release 24 hr 10 mg PO DAILY Rx Instructions: after the same meal each day sildenafil 25 mg tablet 75 mg PO DAILY PRN (Reason: Erectile Dysfunction) metoprolol succinate 50 mg tablet extended release 24 hr 75 mg PO BID Qty: 60 3RF Changed irbesartan 75 mg tablet 37.5 mg PO BIDWM Qty: 60 2RF Rx Instructions: take 1/2 tablet 2 x day Discontinued diltiazem HCl [DILT-XR] 180 mg capsule,ext.rel 24h degradable 180 mg PO 2XD aspirin 81 mg Tablet 81 mg PO DAILY clonidine HCl 0.1 mg Tablet 0.1 mg PO PRN PRN (Reason: Hypertension) Rx Instructions: take if SBP >180 or DBP >100 Discharge Orders: Discharge Order (Routine); Ordered 02/27/22 Ordered By: Liliana Blank Referrals: Kisha Medina FNP [Nurse Practitioner] - 7-10 days Juan Ramon Tabor DO [Primary Care Provider] - 7-10 days (Please call Monday to schedule follow up appointment.) Tessy Snow MD [Physician] - 1 month (Please call Monday to schedule a follow up appointment.) Discharge Diet: Cardiac Discharge Activity: Increase activity as tolerated Patient Instructions: Diltiazem (By mouth), Clonidine (By mouth), Aspirin (By mouth), Amlodipine (By mouth), Nitroglycerin, Rapid Release (By mouth) (NitroMist, Nitrolingual,..., Atorvastatin (By mouth), Clopidogrel (By mouth), Heart Attack (GEN), Chest Pain (ED), Chronic Hypertension (DC), Chest Pain Stoplight, Opioid Safety Activity Restrictions/Additional Instructions: Do not lift anything more than 5 lbs for 1 week. Keep the site dry and clean Take medications as prescribed and follow up as scheduled. Blood pressure and heart rate log till follow up DO NOT USE NITROGLYCERINE within 2 days of SILDENAFIL USE Discharge Attestations Time Spent in Discharge Care*: less than 30 min Quality Metrics Clinical Quality Measures [ No reported AMI, CVA or VTE this stay] Coding Level of Care Code Acute Chg FW DC note Diagnoses Non-ST elevation SD (NSTEMI) I21.4 Essential (primary) hypertension I10 Dyslipidemia E78.5 BPH (benign prostatic hyperplasia) N40.0
--- NOTE | 2022-02-27 10:27 | P.PN_ITS ---
Subjective Subjective: s/p JULIA to distal RCA Medications: Reviewed: Yes Vitals/I&O/Wt Last Vital Signs Temp 98.6 F 02/27/22 07:55 Pulse 88 02/27/22 07:55 Resp 14 02/27/22 07:55 BP 116/83 02/27/22 07:55 Pulse Ox 94 02/27/22 07:55 O2 Del Method 02/27/22 07:55 O2 Flow Rate 2 02/26/22 12:45 02/26/22 02/27/22 02/27/22 22:59 06:59 14:59 Intake Total 1240 / 1753.4 Balance 1240 / 1753.4 Weight last 48 hrs Weight 248 lb 1 oz Weight 240 lb Physical Exam Narrative: Gen:obese man laying in bed in NAD HEENT/Neck:EOMI, No JVD or lymphadenopathy RS:CTAB/L, No wheezes or rales CVS: S1, S2 regular, No murmur, rub or gallop PA:soft, NTND. BS2+, No organomegaly Ext: No edema, cyanosis or clubbing. 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 -Given patient's ongoing symptoms, elevated troponin and EKG changes; he had left heart catheterization. -s/p JULIA to distal RCA -doing well -continue DAPT, statin, metoprolol -Advised repeatedly not to use NTG and sildenafil within 48 hr (2) Essential (primary) hypertension: Advised to keep BP/HR log (3) Dyslipidemia: (4) BPH (benign prostatic hyperplasia): Plan History of kidney stones Family history of coronary artery disease in father with history of bypass in his late 70s and paternal grandfather with history of heart disease in his 50s Attestations Medical Necessity Statement*: stable to be discharged Coding Level of Care Code Acute Business Development Agent for [facility] Fwd Diagnoses Non-ST elevation DC (NSTEMI) I21.4 Essential (primary) hypertension I10 Dyslipidemia E78.5 BPH (benign prostatic hyperplasia) N40.0
[2022-02-27 10:41] VITALS: BP 116/63
[2022-02-27] MEDS: losartan 50 mg Tablet 25 MG PO (10:41)
[2022-02-27] MEDS: pantoprazole DR 40 mg Tablet PO (10:42)
[2022-02-27] MEDS: metoprolol succinate ER (24 HR) 50 mg Tablet 75 MG PO (10:43)
[2022-02-27] MEDS: clopidogrel 75 mg Tablet PO (10:43)
[2022-02-27] MEDS: dilTIAZem ER (24HR) 180 mg Capsule PO (10:43)
[2022-02-27] MEDS: aspirin 81 mg EC Tablet PO (10:45)
[2022-02-27] MEDS: alfuzosin 10 mg ER Tablet PO (11:13)
[2022-02-27 12:24] VITALS: BP 116/63; PULSE 73; RESP 19; O2SAT 95
--- NOTE | 2022-02-27 12:25 | PC.NURSE ---
Patient given discharge instructions and education and reminded not to use his wrist to lift anything over 5lb for one week. Patient verbalized understanding. New scripts sent to pharmacy. IV stopped, pulled and intact. Patient tolerated well. Patient ambulated to front entrance with and nurse. Patient verbalized understanding of all instructions.
== END 2022-02-27 12:27 | disposition home or self-care (01) | DRG 247 ==
LOC: ER 21:10 → MEDSURG 23:11
PROVIDERS: Internal Medicine Cardiovascular Disease; Admitting Provider Student in an Organized Health Care Education/Training Program; Emergency Provider Emergency Medicine; PCP Family Medicine; Visit Provider Internal Medicine
PROC: B2111ZZ Fluoroscopy of Multiple Coronary Arteries using Low Osmolar Contrast (ICD-10-PCS; principal; 2022-02-26 09:30)
PROC: 027034Z Dilation of Coronary Artery, One Artery with Drug-eluting Intraluminal Device, Percutaneous Approach (ICD-10-PCS; 2022-02-26 09:30)
DX: I21.4 Non-ST elevation (NSTEMI) myocardial infarction (principal); I10 Essential (primary) hypertension; E78.5 Hyperlipidemia, unspecified; N40.0 Benign prostatic hyperplasia without lower urinary tract symptoms; I25.119 Atherosclerotic heart disease of native coronary artery with unspecified angina pectoris; R00.0 Tachycardia, unspecified; Z82.49 Family history of ischemic heart disease and other diseases of the circulatory system; Z87.442 Personal history of urinary calculi
CPT/HCPCS: 36415; 71045; 80048; 80053; 80061; 83036; 83690; 83735; 83880; 84484; 85025; 87426; 92929; 93005; 93306; 93458; 96360; 96372; 99152; 99153; 99285; C1725; C1769; C1874; C1887; C1894; J1200; J1644; J1650; J2250; J2270; J2405; J3010; J3490; J7030; Q9967

== ENCOUNTER → 2022-03-04 10:10 | Outpatient (BNVA) | payer MEDICARE, OTHER, SELFPAY | PROVIDERS: PCP Family Medicine; Visit Provider Nurse Practitioner Family | DX: I25.10 Atherosclerotic heart disease of native coronary artery without angina pectoris (principal) | CPT/HCPCS: 36415; 80048; 99213; 99214 ==

== ENCOUNTER → 2022-05-06 09:51 | Outpatient (BNVA) | payer MEDICARE, OTHER, SELFPAY | PROVIDERS: PCP Family Medicine; Visit Provider Internal Medicine Cardiovascular Disease | DX: I25.10 Atherosclerotic heart disease of native coronary artery without angina pectoris (principal); I10 Essential (primary) hypertension; I83.93 Asymptomatic varicose veins of bilateral lower extremities; E78.5 Hyperlipidemia, unspecified; N40.0 Benign prostatic hyperplasia without lower urinary tract symptoms | CPT/HCPCS: 99214 ==

== ENCOUNTER → 2022-07-07 15:45 | Outpatient (BNVA) | payer MEDICARE, OTHER, SELFPAY | PROVIDERS: PCP Family Medicine; Visit Provider Family Medicine | DX: N40.0 Benign prostatic hyperplasia without lower urinary tract symptoms (principal); E78.5 Hyperlipidemia, unspecified; I25.10 Atherosclerotic heart disease of native coronary artery without angina pectoris | CPT/HCPCS: 80053; 80061; 85025 ==

== ENCOUNTER → 2022-11-22 09:51 | Outpatient (BNVA) | payer MEDICARE, OTHER, SELFPAY | PROVIDERS: PCP Family Medicine; Visit Provider Nurse Practitioner Family | DX: L57.8 Other skin changes due to chronic exposure to nonionizing radiation (principal); L21.8 Other seborrheic dermatitis; L82.0 Inflamed seborrheic keratosis; L72.0 Epidermal cyst; L82.1 Other seborrheic keratosis; L81.4 Other melanin hyperpigmentation; D22.5 Melanocytic nevi of trunk; L85.3 Xerosis cutis; L57.0 Actinic keratosis | CPT/HCPCS: 17000; 17003; 17110; 99204 ==

== ENCOUNTER → 2022-12-02 10:07 | Outpatient (BNVA) | payer MEDICARE, OTHER, SELFPAY | PROVIDERS: PCP Family Medicine; Visit Provider Internal Medicine Cardiovascular Disease | DX: I25.10 Atherosclerotic heart disease of native coronary artery without angina pectoris (principal); I10 Essential (primary) hypertension; I83.93 Asymptomatic varicose veins of bilateral lower extremities; E78.5 Hyperlipidemia, unspecified; N40.0 Benign prostatic hyperplasia without lower urinary tract symptoms | CPT/HCPCS: 99214 ==

== ENCOUNTER 2023-04-05 19:26 | Emergency (ER) | payer MEDICARE, OTHER, SELFPAY ==
--- NOTE | 2023-04-05 19:28 | ECG_ITS ---
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 Measurements Intervals [place] Rate: 70 P: 229 NV: 227 QRS: -4 QRSD: 90 T: 15 QT: 389 QTc: 421 Interpretive Statements SINUS RHYTHM WITH FIRST DEGREE AV BLOCK Compared to ECG 02/26/2022 05:52:45 T-wave abnormality no longer present Electronically Signed On 04-06-2023 16:38:34 CUSTOMER ORDER CLERK by Nevaeh Francis M.D. [id number] f
--- NOTE | 2023-04-05 19:28 | XRR_ITS ---
PROCEDURE INFORMATION: Exam: XR Chest Exam date and time: 04/05/2023 7:43 PM Age: 67 years old Clinical indication: Shortness of breath; Patient HX: Left anterior chest pain; HX cardiac stent x 1 yr ago TECHNIQUE: Imaging protocol: Radiologic exam of the chest. Views: 1 view. COMPARISON: CR XR chest 1V portable [id number] 02/25/2022 6:35 PM FINDINGS: Lungs: Unremarkable. No consolidation. Pleural spaces: Unremarkable. No pleural effusion. No pneumothorax. Heart/Mediastinum: Unremarkable. No cardiomegaly. Bones/joints: Unremarkable. XR/XR chest 1V portable [id number] IMPRESSION: No acute findings.
[2023-04-05 19:57] VITALS: BP 167/94; PULSE 72; RESP 17; TEMP 36.9; O2SAT 98; BMI 32.5
[2023-04-05 20:19] LABS: Basophils # 0.1 10^3/uL (0.0-0.1); Basophils % 0.6 %; Eosinophils % 0.3 %; Hematocrit 44.5 % (37-53); Lymphocytes # 1.4 10^3/uL (0.8-4.8); Mean Corpuscular HGB Conc 33.5 g/dL (30-55); Mean Corpuscular Hemoglobin 30.7 pg (27-33); Mean Corpuscular Volume 91.6 fl (82-101); Mean Platelet Volume 9.5 fL (7.4-10.4); Monocytes # 0.5 10^3/uL (0.2-0.9); Monocytes % 3.6 %; Neutrophils # 10.92 10^3/uL (1.8-7.7); Neutrophils % 84.2 %; Nucleated Red Blood Cells % 0 %; Platelet Count 273 10^3/cmm (157-399); Red Blood Count 4.86 10^6/uL (3.85-5.65); Red Cell Distribution Width 12.8 % (12.1-15.1); White Blood Count 12.98 10^3/uL (3.29-11.43)
[2023-04-05 20:45] LABS: Troponin(5th) Baseline < 6 ng/L (0-15)
[2023-04-05 20:48] LABS: Alanine Aminotransferase 24 U/L (0-41); Albumin Level 4.8 g/dL (3.5-5.2); Alkaline Phosphatase 56 U/L (40-130); Anion Gap 16.1 (5-19); Aspartate Amino Transferase 19 U/L (0-40); Blood Urea Nitrogen 24 mg/dL (8-23); Calcium 9.2 mg/dL (8.5-10.5); Carbon Dioxide 23 mmol/L (22-29); Chloride 104 mmol/L (98-107); Globulin 2.1 g/dL (1.3-4.6); Glomerular Filtration Rate 83.7 mL/min (90-130); Glucose 121 mg/dL (65-115); Osmolality Calculated 293 mOsm/kg (285-295); Potassium 4.1 mmol/L (3.5-5.1); Sodium 139 mmol/L (136-145); Total Bilirubin 0.6 mg/dL (0.15-1.2); Total Protein 6.9 g/dL (6.6-8.7)
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
[2023-04-05 22:07] LABS: Troponin 5 2HR Delta 0.00001 ABS# (0-10)
[2023-04-05 22:13] VITALS: BP 158/103; PULSE 71; O2SAT 97
== END 2023-04-05 22:17 | disposition home or self-care (01) ==
PROVIDERS: Emergency Provider Emergency Medicine; PCP Family Medicine
DX: R07.9 Chest pain, unspecified (principal); Z79.02 Long term (current) use of antithrombotics/antiplatelets; Z79.82 Long term (current) use of aspirin; E78.5 Hyperlipidemia, unspecified; I10 Essential (primary) hypertension; I25.2 Old myocardial infarction
CPT/HCPCS: 36415; 71045; 80053; 84484; 85025; 93005; 99285

== ENCOUNTER → 2023-05-25 10:03 | Outpatient (BNVA) | payer MEDICARE, OTHER, SELFPAY | PROVIDERS: PCP Family Medicine; Visit Provider Nurse Practitioner Family | DX: L57.0 Actinic keratosis (principal); L21.8 Other seborrheic dermatitis; L57.8 Other skin changes due to chronic exposure to nonionizing radiation; L72.0 Epidermal cyst; L82.1 Other seborrheic keratosis; L81.4 Other melanin hyperpigmentation; D22.5 Melanocytic nevi of trunk; L85.3 Xerosis cutis | CPT/HCPCS: 17000; 99214 ==

== ENCOUNTER → 2023-06-02 10:35 | Outpatient (BNVA) | payer MEDICARE, OTHER, SELFPAY | PROVIDERS: PCP Family Medicine; Visit Provider Nurse Practitioner Family | DX: I25.10 Atherosclerotic heart disease of native coronary artery without angina pectoris (principal); I10 Essential (primary) hypertension | CPT/HCPCS: 99214 ==

== ENCOUNTER → 2023-10-13 09:28 | Outpatient (BNVA) | payer MEDICARE, OTHER, SELFPAY | PROVIDERS: PCP Family Medicine; Visit Provider Nurse Practitioner Family | DX: D48.5 Neoplasm of uncertain behavior of skin (principal); L57.8 Other skin changes due to chronic exposure to nonionizing radiation; Z80.8 Family history of malignant neoplasm of other organs or systems; L57.0 Actinic keratosis; L82.0 Inflamed seborrheic keratosis; L72.0 Epidermal cyst; L82.1 Other seborrheic keratosis; L81.4 Other melanin hyperpigmentation; D22.5 Melanocytic nevi of trunk | CPT/HCPCS: 11102; 17000; 17110; 99213 ==

== ENCOUNTER → 2023-12-05 13:47 | Outpatient (BNVA) | payer MEDICARE, OTHER, SELFPAY | PROVIDERS: PCP Family Medicine; Visit Provider Internal Medicine | DX: I25.10 Atherosclerotic heart disease of native coronary artery without angina pectoris (principal); I10 Essential (primary) hypertension; I83.93 Asymptomatic varicose veins of bilateral lower extremities; E78.5 Hyperlipidemia, unspecified; N40.0 Benign prostatic hyperplasia without lower urinary tract symptoms | CPT/HCPCS: 99214 ==

== ENCOUNTER → 2024-04-15 10:10 | Outpatient (BNVA) | payer MEDICARE, OTHER, SELFPAY | PROVIDERS: PCP Family Medicine; Visit Provider Nurse Practitioner Family | DX: L57.8 Other skin changes due to chronic exposure to nonionizing radiation (principal); Z80.8 Family history of malignant neoplasm of other organs or systems; L82.0 Inflamed seborrheic keratosis; Z78.9 Other specified health status; L53.8 Other specified erythematous conditions; L29.89 Other pruritus; L57.0 Actinic keratosis | CPT/HCPCS: 17000; 17110; 99213 ==

== ENCOUNTER → 2024-06-06 15:31 | Outpatient (BNVA) | payer MEDICARE, OTHER, SELFPAY | PROVIDERS: PCP Family Medicine; Visit Provider Clinical Nurse Specialist Adult Health | DX: J06.9 Acute upper respiratory infection, unspecified (principal) | CPT/HCPCS: 87400; 87426 ==

== ENCOUNTER → 2024-07-01 10:15 | Outpatient (BNVA) | payer OTHER, SELFPAY | PROVIDERS: PCP Family Medicine; Visit Provider Family Medicine | DX: Z00.00 Encounter for general adult medical examination without abnormal findings (principal); I10 Essential (primary) hypertension; I25.10 Atherosclerotic heart disease of native coronary artery without angina pectoris; M54.9 Dorsalgia, unspecified | CPT/HCPCS: 80053; 80061; 85025; G0103 ==

== ENCOUNTER → 2024-08-14 10:35 | Outpatient (BNVA) | payer MEDICARE, OTHER, SELFPAY | PROVIDERS: PCP Family Medicine; Visit Provider Nurse Practitioner Family | DX: S00.30XA Unspecified superficial injury of nose, initial encounter (principal); D22.39 Melanocytic nevi of other parts of face; L57.8 Other skin changes due to chronic exposure to nonionizing radiation; L81.4 Other melanin hyperpigmentation; L82.1 Other seborrheic keratosis; L57.0 Actinic keratosis | CPT/HCPCS: 17000; 99213 ==

== ENCOUNTER → 2025-01-21 07:54 | Outpatient (BNVA) | payer MEDICARE, OTHER, SELFPAY | PROVIDERS: PCP Family Medicine; Visit Provider Nurse Practitioner Family | DX: D48.5 Neoplasm of uncertain behavior of skin (principal); G90.09 Other idiopathic peripheral autonomic neuropathy; L81.4 Other melanin hyperpigmentation; L57.8 Other skin changes due to chronic exposure to nonionizing radiation; L82.1 Other seborrheic keratosis; D22.39 Melanocytic nevi of other parts of face; L57.0 Actinic keratosis | CPT/HCPCS: 17000; 99214 ==